=== PATIENT | female | born 1985 | race Caucasian/White ===

== ENCOUNTER 2017-08-14 18:45 | Observation (INO) ==
[2017-08-14 19:35] LABS: Bilirubin,Urine Negative (Negative); Blood,Urine Moderate (Negative); Clarity,Urine Clear (Clear); Color,Urine Yellow (Yellow); Glucose,Urine (UA) Normal (Normal); Ketones,Urine Negative (Negative); Leukocyte Esterase,Urine Negative (Negative); Nitrite,Urine Negative (Negative); Protein,Urine 30 mg/dL (Neg-Trace); Specific Gravity,Urine > 1.030 (1.010-1.025); Urobilinogen,Urine Normal (Normal)
[2017-08-14 19:36] LABS: Bacteria,Urine None Seen per hpf (None-Few); Hyaline Casts,Urine None Seen per lpf (None-Few); RBC,Urine 15-30 per hpf (0-3); Squamous Epithelial Cell,Urine Many per lpf (None-Few)
[2017-08-14] MEDS ORDERED: 0.9 % Sodium Chloride 1,000 ML IVC ONE (20:08)
[2017-08-14] MEDS ORDERED: *HR* HYDROmorphone (PF) 1 MG/ML SYRINGE IVP ONE ×3 (20:08→22:22)
[2017-08-14] MEDS ORDERED: Ondansetron 4 MG/2 ML VIAL IVP ONE (20:08)
--- NOTE | 2017-08-14 20:22 | Emergency Department Note ---
START Narrative - START START: I examined this patient and my medical decision-making was reviewed with the emergency medicine resident. I agree with the documented findings, disposition and treatment plan as described except to the extent set forth below. Patient seen with emergency medicine resident Dr. Simone Mckeon, Please see a copy of his note for details of the H&P, ED evaluation, management and disposition. I have independently evaluated the patient and confirmed appropriate portions of the history and physical exam. Briefly: A 31-year-old female was seen at [facility] ED yesterday was diagnosed with "kidney stone" discharge home with urologic follow-up cefuroxime , Tamulosin and Vicodin. Patient says that she has increasing pain that the maximum control she was on the bed writhing in moderate distress. Patient signed a release so we could see the results of the CT findings and the ED discharge summary. Patient having IV Dilaudid and Zofran. Disposition pending.
--- NOTE | 2017-08-14 20:24 | Emergency Department Note ---
Disposition Clinical Impression: Ureterolithiasis, Intractable pain Disposition: Admitted As Inpatient Condition: Fair Time of Disposition: 22:53 Abdominal Pain HPI - General Chief Complaint: ED Abdominal Pain Stated Complaint: Kidney stone Time Seen by Provider: 08/14/17 20:04 Source: patient Mode of arrival: ambulatory Limitations: no limitations Nursing Notes Reviewed: Yes Vital Signs Reviewed: Yes - History of Present Illness HPI Narrative: 31-year-old female presents with right lower quadrant pain right flank pain, she is recently diagnosed with a kidney stone yesterday. She no history of kidney stones, she presents now with dysuria, worsening pain 10 out of 10, hematuria, has had a history of tubal ligation, patient states her pain now is 10 out of 10, right lower quadrant radiating to her right flank, had dysuria, she denies fever but she has had some cold sweats. She reports nausea but no emesis, denies any diarrhea. This was follow-up with urologist she was given cefuroxime, Byram, and plan is for urology follow-up if she could not wait she had a come back in because of worsening pain Pt Subjective Complaint: abdominal pain, flank pain Onset (ago): hour(s) Consistency: intermittent Location: RLQ Pain Severity: severe Pain Scale: 9 Quality: cramping, aching Radiation: RLQ Migration to: no migration Improves with: nothing Associated symptoms: Reports: nausea, dysuria. Denies: vomiting, hematemesis, hematochezia, syncope Treatments prior to arrival: none - Related Data Home Medications Medication Instructions Recorded Confirmed Unable To Obtain [Unable to Obtain] 08/14/17 08/14/17 Allergies Allergy/AdvReac Type Severity Reaction Status Date / Time Penicillins Allergy Rash Verified 08/14/17 19:24 All systems ED: reviewed and negative except as stated. Review of Systems: As Per HPI Constitutional: Reports: chills. Denies: fever Eyes: Denies: eye pain ENT ED: Denies: ear pain Cardiovascular: Denies: chest pain, palpitations Respiratory: Denies: cough, dyspnea Gastrointestinal: Reports: abdominal pain, nausea. Denies: vomiting, diarrhea, melena, hematochezia Genitourinary: Reports: as per HPI, dysuria. 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 Eyes: PERRLA, sclera anicteric ENT & Mouth: MMM Neck: normal inspection, neck is supple Resp: CTA bilaterally, no resp distress CV: RRR, no m/g/r GI: normal inspection, soft, right lower quadrant tenderness no guarding or rigidity +right CVA tenderness Neuro: A&O3, CNII-XII grossly intact, MIRAMONTES Skin: on limited exam, skin intact with no rashes or lesions - General Limitations: no limitations General appearance: alert Course Course Narrative: [id number] female with recently diagnosed right ureterolithiasis, will get CT imaging from [facility], her urinalysis shows blood negative. She has plan for BMP to assess renal function, antiemetics and analgesics, likely urology after attempted pain control in the emergency department - Reevaluation(s) Reevaluation #1: She was given 3 rounds of IV Dilaudid, stated her pain was under control records review showed that she had a 4 mm UVJ stone with [id number] hydronephrosis on the CT scan performed yesterday there is a verbal read from the ED physician at the time., I discussed these findings with the urologist Dr. Anderson, I gave the patient option of follow-up and outpatient setting she states that she is not able to tolerate by mouth Byram and she is having emesis with try to take oral narcotics, she does not think that she can make it palpation, 7 intractable pain therefore [place] for intractable pain ureterolithiasis Dr. Anderson service excepting Time: 22:30 Vital Signs Temperature 97.7 F 08/14/17 19:20 Pulse Rate 95 08/14/17 19:20 Respiratory Rate 20 08/14/17 19:20 Blood Pressure 157/110 08/14/17 19:20 O2 Sat by Pulse Oximetry 97 08/14/17 19:20 Temperature 97.7 F 08/14/17 19:20 Pulse Rate 95 08/14/17 19:20 Respiratory Rate 20 08/14/17 19:20 Blood Pressure 157/110 08/14/17 19:20 O2 Sat by Pulse Oximetry 97 08/14/17 19:20 Oxygen Delivery Oxygen Delivery Room Air Abdominal Pain - Medical Records Medical records reviewed: Yes I reviewed the patient's medical records. - Lab Data Lab results reviewed: Yes I reviewed the patient's lab results. Result diagrams: 08/14/17 20:24 08/14/17 20:24 Lab Results 08/14/17 08/14/17 08/14/17 Range/Units 18:49 18:49 20:24 WBC 9.7 (4.3-11.1) K/mcL RBC 4.41 (3.82-4.97) M/mcL Hgb 13.1 (11.5-15.4) g/dL Hct 39.1 (35.3-44.9) % MCV 88.7 (83.0-100.0) fL MCH 29.7 (28.0-33.3) pg MCHC 33.5 (31.6-35.5) g/dL RDW 11.9 (11.5-14.5) % Plt Count 297 (140-400) K/mcL MPV 9.7 (9.4-12.4) fL Immature Gran % 0.4 (0-4) % Seg Neutrophils % 75.0 % Lymphocytes % 16.7 % Monocytes % 6.8 % Eosinophils % 0.6 % Basophils % 0.5 % Neutrophils # 7.3 (1.6-8.9) K/mcL Lymphocytes # 1.6 (0.6-4.6) K/mcL Monocytes # 0.7 (0.0-1.3) K/mcL Eosinophils # 0.1 (0.0-0.6) K/mcL Basophils # 0.1 (0.0-0.2) K/mcL Sodium (136-145) mEq/L Potassium (3.5-5.1) mEq/L Chloride (98-107) mEq/L Carbon Dioxide (23-29) mEq/L BUN (6-20) mg/dL Creatinine (0.60-1.20) mg/dL Est GFR ( Amer) (> 60) Est GFR (Non-Af Amer) (> 60) BUN/Creatinine Ratio (6-26) Glucose (70-105) mg/dL Calculated Osmolality (280-300) Calcium (8.6-10.3) mg/dL Urine Color Yellow (Yellow) Urine Clarity Clear (Clear) Urine pH 6.0 (5.0-8.0) pH Units Ur Specific [place] > 1.030 H (1.010-1.025) Urine Protein 30 H (Neg-Trace) mg/dL Urine Glucose (UA) Normal (Normal) mg/dL Urine Ketones Negative (Negative) mg/dL Urine Blood Moderate H (Negative) Urine Nitrite Negative (Negative) Urine Bilirubin Negative (Negative) Urine Urobilinogen Normal (Normal) mg/dL Ur Leukocyte Esterase Negative (Negative) Urine Microscopic RBC 15-30 H (0-3) per hpf Urine Microscopic WBC 3-5 H (0-3) per hpf Ur Squamous Epith Cells Many H (None-Few) per lpf Urine Bacteria None Seen (None-Few) per hpf Hyaline Casts None Seen (None-Few) per lpf Ur Culture Indicated? NO (NO) Urine Test Negative (Negative) 08/14/17 Range/Units 20:24 WBC (4.3-11.1) K/mcL RBC (3.82-4.97) M/mcL Hgb (11.5-15.4) g/dL Hct (35.3-44.9) % MCV (83.0-100.0) fL MCH (28.0-33.3) pg MCHC (31.6-35.5) g/dL RDW (11.5-14.5) % Plt Count (140-400) K/mcL MPV (9.4-12.4) fL Immature Gran % (0-4) % Seg Neutrophils % % Lymphocytes % % Monocytes % % Eosinophils % % Basophils % % Neutrophils # (1.6-8.9) K/mcL Lymphocytes # (0.6-4.6) K/mcL Monocytes # (0.0-1.3) K/mcL Eosinophils # (0.0-0.6) K/mcL Basophils # (0.0-0.2) K/mcL Sodium 138 (136-145) mEq/L Potassium 3.8 (3.5-5.1) mEq/L Chloride 107 (98-107) mEq/L Carbon Dioxide 26 (23-29) mEq/L BUN 21 H (6-20) mg/dL Creatinine 0.80 (0.60-1.20) mg/dL Est GFR ( Amer) > 60 (> 60) Est GFR (Non-Af Amer) > 60 (> 60) BUN/Creatinine Ratio 26 (6-26) Glucose 98 (70-105) mg/dL Calculated Osmolality 289 (280-300) Calcium 9.5 (8.6-10.3) mg/dL Urine Color (Yellow) Urine Clarity (Clear) Urine pH (5.0-8.0) pH Units Ur Specific [place] (1.010-1.025) Urine Protein (Neg-Trace) mg/dL Urine Glucose (UA) (Normal) mg/dL Urine Ketones (Negative) mg/dL Urine Blood (Negative) Urine Nitrite (Negative) Urine Bilirubin (Negative) Urine Urobilinogen (Normal) mg/dL Ur Leukocyte Esterase (Negative) Urine Microscopic RBC (0-3) per hpf Urine Microscopic WBC (0-3) per hpf Ur Squamous Epith Cells (None-Few) per lpf Urine Bacteria (None-Few) per hpf Hyaline Casts (None-Few) per lpf Ur Culture Indicated? (NO) Urine Test (Negative) - Radiology Data Right Ureterolithiasis 4mm stone at UVJ, mild to moderate hydronephrosis. Verbal read from CT Abd Pelvis from 08/13 [facility]
[2017-08-14 20:34] LABS: Basophils # 0.1 K/mcL (0.0-0.2); Basophils % 0.5 %; Eosinophils # 0.1 K/mcL (0.0-0.6); Eosinophils % 0.6 %; Hematocrit 39.1 % (35.3-44.9); Hemoglobin 13.1 g/dL (11.5-15.4); Immature Granulocytes % 0.4 % (0-4); Lymphocytes # 1.6 K/mcL (0.6-4.6); Lymphocytes % 16.7 %; Mean Corpuscular HGB Conc 33.5 g/dL (31.6-35.5); Mean Corpuscular Hemoglobin 29.7 pg (28.0-33.3); Mean Corpuscular Volume 88.7 fL (83.0-100.0); Mean Platelet Volume 9.7 fL (9.4-12.4); Monocytes # 0.7 K/mcL (0.0-1.3); Monocytes % 6.8 %; Neutrophils # 7.3 K/mcL (1.6-8.9); Platelet Count 297 K/mcL (140-400); Red Blood Count 4.41 M/mcL (3.82-4.97); Red Cell Distribution Width 11.9 % (11.5-14.5)
[2017-08-14 20:46] LABS: BUN/Creatinine Ratio 26 (6-26); Blood Urea Nitrogen 21 mg/dL (6-20); Calcium 9.5 mg/dL (8.6-10.3); Carbon Dioxide 26 mEq/L (23-29); Chloride 107 mEq/L (98-107); Glucose 98 mg/dL (70-105); Osmolality,Calculated 289 (280-300); Potassium 3.8 mEq/L (3.5-5.1); Sodium 138 mEq/L (136-145); eGFR For African Americans > 60 (> 60); eGFR For Non-African Americans > 60 (> 60)
[2017-08-14] MEDS ORDERED: *HR* Promethazine 25 MG/ML VIAL IVP PRN (22:22)
[2017-08-14] MEDS ORDERED: Naloxone 0.4 MG/ML INJ IVP PRN (22:22)
[2017-08-14] MEDS ORDERED: Ondansetron 4 MG/2 ML VIAL IVP PRN (22:22)
[2017-08-14] MEDS ORDERED: Ketorolac 15 MG/ML VIAL IVP PRN (22:22)
[2017-08-14] MEDS ORDERED: *HR* HYDROmorphone (PF) 1 MG/ML SYRINGE ONE (22:27)
[2017-08-14] MEDS ORDERED: 0.9 % Sodium Chloride 1,000 ML IVC SCH (22:30)
[2017-08-15] MEDS: *HR* HYDROmorphone (PF) 1 MG/ML SYRINGE IVP PRN ×2 (00:27→05:16)
--- NOTE | 2017-08-15 08:07 | Urology History & Physical ---
Date of Encounter: 08/15/17 Time of Encounter: 08:03 Assessment and Plan (1) Hydronephrosis with ureteral calculus Current Visit: Yes Status: Acute I gave patient the option of trial of passage including waiting until tomorrow. Patient states she does not feel she is going to be able to pass the stone secondary to the degree of pain that she has been in. We'll proceed with a ureteroscopic stone extraction with possible holmium laser lithotripsy today. We discussed the procedure in detail including potential risks which include perforation, stricture, stent complications or discomfort, infection, injury to her urinary tract, inability to retrieve the stone. Patient voiced understanding and wishes to proceed (2) Intractable pain Current Visit: Yes Status: Acute Pain not controlled enough for discharge and attempts at trial of passage History of Present Illness Chief complaint: flank pain HPI: Ms. Porter is a 31 year old female with 2 recent Er visits for flank pain. CT scan with a 4 mm UVJ stone. severe pain and N/V. no fever. Patient's pain was not controlled enough for discharge last night. States she continues to have pain overnight but not as severe. Strong family history of kidney stones Past Med Surg Social Fam HX - Past Medical History Medical history: hypertension Psychiatric history: no psych history - Social History Smoking Status: Former smoker Smokeless Tobacco Status: No Alcohol use: occasionally Drug use: none Medications and Allergies Unable To Obtain [Unable to Obtain] 08/14/17 [History] 3 Allergy/AdvReac Type Severity Reaction Status Date / Time Penicillins Allergy Rash Verified 08/14/17 19:24 Review of Systems - Constitutional fatigue, no fever(s), no malaise - EENT Nose, mouth and throat: no dizziness - Cardiovascular no chest pain - Respiratory no cough - Gastrointestinal abdominal pain, nausea, vomiting - Genitourinary Genitourinary: flank pain - Musculoskeletal back pain - Integumentary no erythema - Neurological no confusion - Psychiatric no anxiety - Hematologic/Lymphatic no easy bleeding - Allergic/Immunologic no throat swelling Exam Initial Vital Signs Temp Pulse Resp BP Pulse Ox 97.7 F 95 20 157/110 97 08/14/17 19:20 08/14/17 19:20 08/14/17 19:20 08/14/17 19:20 08/14/17 19:20 - General physical appearance Present: well developed, no distress - Eyes Present: PERRL - ENT Present: normal nares, no hearing loss - Neck Present: no masses, trachea midline - Respiratory Present: normal respiratory effort - Cardiovascular Cardiovascular exam IM: RRR - Integumentary Present: no rash, no abnormal pigmentation - Neurologic Present: normal coordination. Absent: disoriented, confused - Additional Findings Mild right CVA tenderness Urology Results - Labs 08/14/17 20:24 08/14/17 20:24 Abnormal lab results BUN 21 mg/dL (6-20) H 08/14/17 20:24 Ur Specific [place] > 1.030 (1.010-1.025) H 08/14/17 18:49 Urine Protein 30 mg/dL (Neg-Trace) H 08/14/17 18:49 Urine Blood Moderate (Negative) H 08/14/17 18:49 Urine Microscopic RBC 15-30 per hpf (0-3) H 08/14/17 18:49 Urine Microscopic WBC 3-5 per hpf (0-3) H 08/14/17 18:49 Ur Squamous Epith Cells Many per lpf (None-Few) H 08/14/17 18:49 All other labs normal.
[2017-08-15] MEDS ORDERED: Levofloxacin 500 MG/100 ML 500 MG/100 ML BAG IVPB ONE (08:42)
[2017-08-15] MEDS ORDERED: Acetaminophen IV 1,000 MG/100 ML INFUS..BTL ONE (08:49)
--- NOTE | 2017-08-15 09:07 | Anesthesia Evaluation PreOp ---
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 HX Other Medical History: Denies Any Significant HX Anesthesia History: No Prior Anesthetic Complications, Past Anesthesia (Skin grafts, nasal Fx repair, BTL) : No Alcohol Use: occasionally Drug use: none Medications and Allergies Unable To Obtain [Unable to Obtain] 08/14/17 [History] 3 Allergy/AdvReac Type Severity Reaction Status Date / Time Penicillins Allergy Rash Verified 08/14/17 19:24 - Meds/Allergy Pre-op Review Medications Reviewed: Yes Allergies Reviewed: Yes Beta Blockers on Current Med List: No Anesthesia Results - Labs 08/14/17 20:24 08/14/17 20:24 Laboratory Results WBC 9.7 K/mcL (4.3-11.1) 08/14/17 20:24 RBC 4.41 M/mcL (3.82-4.97) 08/14/17 20:24 Hgb 13.1 g/dL (11.5-15.4) 08/14/17 20:24 Hct 39.1 % (35.3-44.9) 08/14/17 20:24 MCV 88.7 fL (83.0-100.0) 08/14/17 20:24 MCH 29.7 pg (28.0-33.3) 08/14/17 20:24 MCHC 33.5 g/dL (31.6-35.5) 08/14/17 20:24 RDW 11.9 % (11.5-14.5) 08/14/17 20:24 Plt Count 297 K/mcL (140-400) 08/14/17 20:24 MPV 9.7 fL (9.4-12.4) 08/14/17 20:24 Immature Gran % 0.4 % (0-4) 08/14/17 20:24 Seg Neutrophils % 75.0 % 08/14/17 20:24 Lymphocytes % 16.7 % 08/14/17 20:24 Monocytes % 6.8 % 08/14/17 20:24 Eosinophils % 0.6 % 08/14/17 20:24 Basophils % 0.5 % 08/14/17 20:24 Neutrophils # 7.3 K/mcL (1.6-8.9) 08/14/17 20:24 Lymphocytes # 1.6 K/mcL (0.6-4.6) 08/14/17 20:24 Monocytes # 0.7 K/mcL (0.0-1.3) 08/14/17 20:24 Eosinophils # 0.1 K/mcL (0.0-0.6) 08/14/17 20:24 Basophils # 0.1 K/mcL (0.0-0.2) 08/14/17 20:24 Sodium 138 mEq/L (136-145) 08/14/17 20:24 Potassium 3.8 mEq/L (3.5-5.1) 08/14/17 20:24 Chloride 107 mEq/L (98-107) 08/14/17 20:24 Carbon Dioxide 26 mEq/L (23-29) 08/14/17 20:24 BUN 21 mg/dL (6-20) H 08/14/17 20:24 Creatinine 0.80 mg/dL (0.60-1.20) 08/14/17 20:24 Est GFR ( Amer) > 60 (> 60) 08/14/17 20:24 Est GFR (Non-Af Amer) > 60 (> 60) 08/14/17 20:24 BUN/Creatinine Ratio 26 (6-26) 08/14/17 20:24 Glucose 98 mg/dL (70-105) 08/14/17 20:24 Calculated Osmolality 289 (280-300) 08/14/17 20:24 Calcium 9.5 mg/dL (8.6-10.3) 08/14/17 20:24 Urine Color Yellow (Yellow) 08/14/17 18:49 Urine Clarity Clear (Clear) 08/14/17 18:49 Urine pH 6.0 pH Units (5.0-8.0) 08/14/17 18:49 Ur Specific [place] > 1.030 (1.010-1.025) H 08/14/17 18:49 Urine Protein 30 mg/dL (Neg-Trace) H 08/14/17 18:49 Urine Glucose (UA) Normal mg/dL (Normal) 08/14/17 18:49 Urine Ketones Negative mg/dL (Negative) 08/14/17 18:49 Urine Blood Moderate (Negative) H 08/14/17 18:49 Urine Nitrite Negative (Negative) 08/14/17 18:49 Urine Bilirubin Negative (Negative) 08/14/17 18:49 Urine Urobilinogen Normal mg/dL (Normal) 08/14/17 18:49 Ur Leukocyte Esterase Negative (Negative) 08/14/17 18:49 Urine Microscopic RBC 15-30 per hpf (0-3) H 08/14/17 18:49 Urine Microscopic WBC 3-5 per hpf (0-3) H 08/14/17 18:49 Ur Squamous Epith Cells Many per lpf (None-Few) H 08/14/17 18:49 Urine Bacteria None Seen per hpf (None-Few) 08/14/17 18:49 Hyaline Casts None Seen per lpf (None-Few) 08/14/17 18:49 Ur Culture Indicated? NO (NO) 08/14/17 18:49 Urine Test Negative (Negative) 08/14/17 18:49 Anesthesia Exam Vital Signs Temp Pulse Resp BP Pulse Ox 08/15/17 06:42 98.3 F 93 18 129/87 93 08/15/17 04:30 98.0 F 101 18 128/93 98 08/15/17 00:07 97.6 F 104 17 157/92 99 08/14/17 23:13 16 126/86 08/14/17 22:55 90 16 131/98 96 08/14/17 19:20 97.7 F 95 20 157/110 97 Intake and Output 08/14/17 08/15/17 08/15/17 23:59 07:59 15:59 Intake Total 1000 / 1000 Output Total 400 / 400 Balance 1000 / 1000 -400 / -400 Intake: IV Fluids 1000 / 1000 0.9 % Sodium Chloride 1,000 ML 1000 / 1000 @ 3750 mls/hr IVC .Q16M ONE Rx# :[id number] Output: Urine 400 / 400 Other: Stool Characteristics Normal for Patient # Voids 2 Weight 94.801 kg Height: 5'7" Weight: 209# NPO (# of Hours): MNoc - HEENT Pupil (Motor): Pupils equal, EOMI Mallampati: II Teeth: Normal Oral Opening: Greater than 3 - COTTON DISPATCHER LOC: Oriented COTTON DISPATCHER Motor: Normal RUE, Normal LUE, Normal RLE, Normal LLE, Normal Face COTTON DISPATCHER Sensory: Normal: RUE, LUE, RLE, LLE, Face - Cardiac Rhythm: Regular Murmur: None - Pulmonary Breath Sounds: bilateral Clear Respiratory Effort: Symmetrical Anesthesia Assess/Plan ASA Score: 2 Modified May Scale for Level of Consciousness: Cooperative, oriented, and tranquil Anesthetic Plan: General Monitoring Plan: Standard Monitors Recovery Plan: PACU Anes Supervising Prov Stmt: Pt seen/evaluated, R&B discussed, questions answered and consent obtained. Faiza Vazquez MD
[2017-08-15] MEDS ORDERED: Lidocaine -MPF 2% 2 ML VIAL ONE (09:14)
[2017-08-15] MEDS ORDERED: *HR* FentaNYL (PF) 100 MCG/2 ML VIAL ONE (09:14)
[2017-08-15] MEDS ORDERED: *HR* Midazolam HCl 2 MG/2 ML VIAL ONE (09:15)
[2017-08-15] MEDS ORDERED: Ringers Solution, Lactated 1,000 ML IVC SCH (09:15)
[2017-08-15] MEDS ORDERED: *HR* Propofol 200 MG/20 ML VIAL IVP ONE (09:15)
--- NOTE | 2017-08-15 09:15 | Operative Note ---
Date of procedure: 08/15/17 Pre-op diagnosis: right distal ureteral stone Post-op diagnosis: same Procedure: right ureteroscopic stone extraction right retrograde pyelogram right JJ stent placement Anesthesia: GETA Surgeon: Darien Anderson Was there an product safety technical assistant present: No Estimated blood loss (cc): 0 Specimen: stone Condition: stable Disposition: PACU Procedure in Detail: PROCEDURE IN DETAIL: Patient was taken back to the operating room, positioned supine on the operating table. Anesthesia was applied without complication. They were moved into dorsal lithotomy. Careful attention was maintained to cushion all pressure points for patient's safety. They were prepped and draped in sterile fashion. Time-out was performed with the proper patient and procedure. A 21-Ukrainian rigid cystoscope was inserted into the bladder without difficulty. Systematic examination of bladder revealed no abnormalities. The stone was at the right UO. The ureteral orifice was cannulated using a 5-Ukrainian ureteral Catheter and a retrograde pyelogram was performed using Isovue. A filling defect was identified which corresponded to the stone. At that point, a zip wire was placed through the 5-Ukrainian and confirmed in the renal pelvis with fluoroscopy. A semi-rigid ureteroscope was carefully inserted into the bladder and guided into the ureteral oriface. At that point , the stone was encountered and I felt that it did not require fragmentation for safe extraction. a 1.9 tipless blasket was used to extract the stone. A 4.8 x 26 ureteral stent was placed over the zip wire under fluoroscopy without complication. The bladder was drained. Stone was sent for stone analysis. The string was left attached to the stent and secured to the patient for easy removal in approximately 72 hours
--- NOTE | 2017-08-15 09:18 | Discharge Summary ---
Date of Encounter: 08/15/17 Time of Encounter: 09:16 - Discharge Diagnosis (1) Hydronephrosis with ureteral calculus Priority: Primary Status: Resolved (2) Intractable pain Priority: Secondary Status: Resolved - Discharge Medications Prescriptions: HYDROcodone/Acet 5/325 mg [Pandora 5-325 mg] 1 tab PO Q4H PRN #10 tab PRN Reason: Pain Phenazopyridine HCl [Pyridium] 200 mg PO TIDAC PRN #10 tab PRN Reason: burning with urination Home Medications: HYDROcodone/Acet 5/325 mg [Pandora 5-325 mg] 1 tab PO Q4H PRN #10 tab 08/15/17 [Rx ] Phenazopyridine HCl [Pyridium] 200 mg PO TIDAC PRN #10 tab 08/15/17 [Rx] Allergies/Adverse Reactions: 3 Allergy/AdvReac Type Severity Reaction Status Date / Time Penicillins Allergy Rash Verified 08/14/17 19:24 Date of admission: 08/14/17 22:20 Primary care physician: PCP NONE Discharging clinician: Darien Anderson Anticipated date of discharge: 08/15/17 - Patient Status Disposition: Home, Self-Care Condition: Good Functional capacity at discharge: independent ambulation Overall status at discharge: patient is progressing back to baseline - Discharge Instructions Follow Up With: NONE,PCP [Primary Care Provider] - Vane Goodson [Family Provider] - Darien Anderson MD [Partnered Physician] - (see patient instructions. ) Additional Instructions: Expect stent discomfort including urgency, frequency, burning on urination, visible blood in the urine, flank pain during urination. This is all normal. Call if excessive Call if fever over 101 No specific activity restrictions Okay to remove stent at home in 72 hours by pulling on the string until the entire stent was removed. If unable to remove the stent at home please come to the urology office . It is normal to have some increased discomfort for 24 hours after the stent is removed. This is secondary to ureteral swelling and spasm. Okay to return to work when patient feels appropriate. Okay to contact office on Tuesday for work excuse. - Diet and Activity Activity: other Diet: advance to your usual diet - Hospital Course Hospital course: Ms. Porter is a 31 year old female admitted with a 4 mm right ureterovesical junction stone diagnosed at [place] emergency room a few days ago. Returns with continued intractable pain. Admitted for pain control and surgical intervention. Patient elects for ureteroscopic stone extraction. Patient underwent a successful stone extraction this morning. Planned discharge postoperatively when solution of symptoms are confirmed - Time Spent with Patient Total time spent providing and/or coordinating discharge services: Less than 30 minutes Exam Initial Vital Signs Temp Pulse Resp BP Pulse Ox 97.7 F 95 20 157/110 97 08/14/17 19:20 08/14/17 19:20 08/14/17 19:20 08/14/17 19:20 08/14/17 19:20 - General physical appearance Present: well developed, no distress
[2017-08-15] MEDS ORDERED: Famotidine 20 MG/2 ML VIAL ONE (09:19)
[2017-08-15] MEDS ORDERED: Metoclopramide 10 MG/2 ML VIAL ONE (09:19)
[2017-08-15] MEDS ORDERED: Dexamethasone 4 MG/ML VIAL ONE (10:09)
[2017-08-15] MEDS ORDERED: Ondansetron 4 MG/2 ML VIAL ONE (10:09)
[2017-08-15] MEDS ORDERED: Naloxone 0.4 MG/ML INJ IVP PRN (11:11)
[2017-08-15] MEDS ORDERED: *HR* Promethazine 25 MG/ML VIAL IVP PRN (11:11)
[2017-08-15] MEDS ORDERED: Ketorolac 15 MG/ML VIAL IVP PRN (11:11)
[2017-08-15] MEDS ORDERED: Ondansetron 4 MG/2 ML VIAL IVP PRN (11:11)
[2017-08-15] MEDS ORDERED: *HR* HYDROmorphone (PF) 1 MG/ML SYRINGE IVP PRN (11:11)
[2017-08-15] MEDS ORDERED: 0.9 % Sodium Chloride 1,000 ML IVC SCH (11:11)
--- NOTE | 2017-08-15 13:09 | Anesthesia Evaluation Post Op ---
Date of Encounter: 08/15/17 Time of Encounter: 10:50 - Vital Signs Vital Signs: Vital Signs/O2 Sat/Glucose, Most Current Temp Pulse Resp BP Pulse Ox 08/15/17 12:10 98.1 F 72 16 118/79 97 08/15/17 11:40 71 15 119/78 97 08/15/17 11:10 87 16 117/77 99 08/15/17 10:51 98.7 F 85 16 119/77 99 08/15/17 10:41 84 16 122/77 99 08/15/17 10:31 86 16 119/84 97 08/15/17 10:21 98.3 F 120 14 120/80 98 - Lungs Lungs: Clear Ascult./Percussion - Airway Airway: Non-obstructed - Cardiovascular Regular Rate - Mental Status Mental Status: Alert & Oriented, Answers Appropriately - Pain Pain Scale: 0 Pain Scale used: Numeric (1 - 10) - Nausea Vomiting Nausea Vomiting: Not Present - Hydration Hydration: Tolerates oral liquids, Has not voided - Discharge PostOp Status: Transfer Patient to floor Anes Supervising Prov Stmt: Pt seen/evaluated, VSS and pt has met criteria for discharge to floor. - MD Taylor
[2017-08-15 15:05] VITALS: BP 118/77
== END 2017-08-15 18:30 | disposition home or self-care (01) ==
LOC: EMEROO 18:45 → 3ANU 18:45 → 3NENU 22:43
PROVIDERS: ADMIT Urology; ATTEND Urology